=== PATIENT | female | born 1960 | race Caucasian/White ===

== ENCOUNTER → 2019-03-07 08:11 | Outpatient (CLI) | payer BC, SELFPAY ==
--- NOTE | 2019-03-07 08:12 | MM_ITS ---
MM Dig screening mamm BI w/CAD ORDERING PHYSICIAN : Natan Partida MD PATIENT AGE: 59 years GENDER: Female COMPARISON: December 2014, June 2016, July 2013 bilateral mammogram INDICATION:: Routine Screening Mammogram No hormones. No new complaints.. Family history. Maternal aunt with breast cancer TECHNIQUE: Standard CC and MLO images were obtained. R2 CAD reviewed. FINDINGS: Low-density breasts generalized fatty replacement minimal residual elements. No areas of concern. No dominant mass nor suspicious calcifications. CAD computer review highlights no areas of concern either. Stable appearance when compared to prior studies . IMPRESSION: Stable bilateral mammogram. No areas of concern. Low-density breast. Follow-up in one year recommended BI-RADS Category: 1 Negative RECOMMENDED FOLLOW-UP: 1YR 1 YEAR FOLLOW-UP (A letter has been sent to the patient regarding results of the study.)
== END ==
PROVIDERS: PCP Internal Medicine; Visit Provider Nurse Practitioner Obstetrics & Gynecology
DX: Z12.31 Encounter for screening mammogram for malignant neoplasm of breast (principal)
CPT/HCPCS: 77067

== ENCOUNTER → 2019-04-22 14:48 | Outpatient (POV) | payer BC, SELFPAY | PROVIDERS: PCP Internal Medicine; Visit Provider Nurse Practitioner Family | DX: Z00.00 Encounter for general adult medical examination without abnormal findings (principal) ==

== ENCOUNTER → 2020-10-27 10:37 | Outpatient (CLI) | payer BC, SELFPAY ==
[2020-10-27 11:00] LABS: Basophils # 0.1 K/mm3 (0-0.2); Basophils % 0.8 % (0.1-2.0); Eosinophils # 0.2 K/mm3 (0.0-0.4); Eosinophils % 2.3 % (0.1-12.0); Hematocrit 45.3 % (37.0-47.0); Hemoglobin 14.9 g/dL (12.2-16.2); Lymphocytes # 2.3 K/mm3 (0.7-4.5); Lymphocytes % 23.5 % (10-50); Mean Corpuscular HGB Conc 32.8 g/dL (31.8-35.4); Mean Corpuscular Hemoglobin 29.4 pg (27.0-31.2); Mean Corpuscular Volume 89.6 fl (81-99); Mean Platelet Volume 7.3 fl (7.4-10.4); Monocytes # 0.5 K/mm3 (0.1-1.0); Monocytes % 4.7 % (1.7-9.3); Neutrophils # 6.8 K/mm3 (1.8-7.8); Neutrophils % 68.7 % (37.0-80.0); Platelet Count 440 K/mm3 (142-424); Red Blood Count 5.06 M/mm3 (4.20-5.40); Red Cell Distribution Width 13.2 % (11.5-17.5); White Blood Count 9.8 K/mm3 (4.8-10.8)
[2020-10-27 11:22] LABS: Hemoglobin A1C 7.1 % (4.0-6.0)
[2020-10-27 11:54] LABS: Chloride 102 mmol/L (98-107)
[2020-10-27 11:55] LABS: Potassium 4.4 mmoL/L (3.5-5.1); Sodium 141 mmol/L (136-145)
[2020-10-27 11:57] LABS: Alanine Aminotransferase 29 U/L (12-78); Anion Gap 16.4 mEq/L (5-15); Aspartate Amino Transferase 28 U/L (14-36); Blood Urea Nitrogen 13 mg/dl (7-17); Carbon Dioxide 27 mmol/L (22.0-30.0); Estimated Glomerular Filt Rate 102 ml/min (>60); GFR (African American) 124 ML/MIN (>60)
[2020-10-27 11:58] LABS: Albumin Level 4.9 g/dl (3.5-5.0); Albumin/Globulin Ratio 1.6 (1.1-1.8); Alkaline Phosphatase 89 U/L (38-126); Bilirubin,Total 0.7 mg/dl (0.2-1.3); Chol/HDL Ratio 4.4 (1-3.5); Cholesterol 229 mg/dl (140-200); Globulin 3.1 g/dL (1.3-3.2); Glucose 114 mg/dl (74-100); HDL Cholesterol 52 mg/dl (40-60); Triglycerides 173 mg/dl (30-150); VLDL Cholesterol 35 mg/dL (0-40)
[2020-10-27 12:09] LABS: Direct LDL Cholesterol 127.11 mg/dL (100-129)
== END ==
PROVIDERS: Visit Provider Internal Medicine
DX: E11.9 Type 2 diabetes mellitus without complications (principal); E78.5 Hyperlipidemia, unspecified; M17.0 Bilateral primary osteoarthritis of knee; G43.009 Migraine without aura, not intractable, without status migrainosus
CPT/HCPCS: 36415; 80053; 80061; 82043; 83036; 85025

== ENCOUNTER → 2021-02-09 09:41 | Outpatient (CLI) | payer BC, SELFPAY ==
[2021-02-09 10:34] LABS: Chloride 100 mmol/L (98-107)
[2021-02-09 10:35] LABS: Potassium 4.6 mmoL/L (3.5-5.1); Sodium 142 mmol/L (136-145)
[2021-02-09 10:37] LABS: Blood Urea Nitrogen 12 mg/dl (7-17); Estimated Glomerular Filt Rate 102 ml/min (>60); GFR (African American) 123 ML/MIN (>60)
[2021-02-09 10:38] LABS: Alanine Aminotransferase 29 U/L (12-78); Albumin Level 4.9 g/dl (3.5-5.0); Albumin/Globulin Ratio 1.6 (1.1-1.8); Alkaline Phosphatase 86 U/L (38-126); Anion Gap 17.6 mEq/L (5-15); Aspartate Amino Transferase 29 U/L (14-36); Bilirubin,Total 0.6 mg/dl (0.2-1.3); Calcium 9.7 mg/dl (8.4-10.2); Carbon Dioxide 29 mmol/L (22.0-30.0); Chol/HDL Ratio 2.6 (1-3.5); Cholesterol 119 mg/dl (140-200); Glucose 104 mg/dl (74-100); HDL Cholesterol 46 mg/dl (40-60); Total Protein,Serum 7.9 g/dl (6.3-8.2); Triglycerides 124 mg/dl (30-150); VLDL Cholesterol 25 mg/dL (0-40)
[2021-02-09 10:50] LABS: Direct LDL Cholesterol 50.61 mg/dL (100-129)
[2021-02-09 12:44] LABS: Hemoglobin A1C 6.1 % (4.0-6.0)
== END ==
PROVIDERS: Visit Provider Internal Medicine
DX: E11.9 Type 2 diabetes mellitus without complications (principal); E78.5 Hyperlipidemia, unspecified; Z79.84 Long term (current) use of oral hypoglycemic drugs
CPT/HCPCS: 36415; 80053; 80061; 83036

== ENCOUNTER → 2021-04-28 08:20 | Outpatient (CLI) | payer BC, SELFPAY | PROVIDERS: PCP Internal Medicine; Visit Provider Nurse Practitioner | DX: Z20.822 Contact with and (suspected) exposure to COVID-19 (principal) | CPT/HCPCS: C9803; U0003; U0005 ==

== ENCOUNTER → 2021-08-10 13:22 | Outpatient (CLI) | payer BC, SELFPAY | PROVIDERS: Visit Provider Internal Medicine | DX: E11.9 Type 2 diabetes mellitus without complications (principal); Z79.84 Long term (current) use of oral hypoglycemic drugs ==

== ENCOUNTER → 2021-08-10 13:23 | Outpatient (CLI) | payer BC, SELFPAY ==
[2021-08-10 13:56] LABS: Basophils # 0.1 K/mm3 (0-0.2); Basophils % 1.2 % (0.1-2.0); Eosinophils # 0.3 K/mm3 (0.0-0.4); Eosinophils % 3.1 % (0.1-12.0); Hematocrit 42.8 % (37.0-47.0); Hemoglobin 14.2 g/dL (12.2-16.2); Lymphocytes # 2.5 K/mm3 (0.7-4.5); Lymphocytes % 24.6 % (10-50); Mean Corpuscular HGB Conc 33.1 g/dL (31.8-35.4); Mean Corpuscular Hemoglobin 30.1 pg (27.0-31.2); Mean Corpuscular Volume 90.9 fl (81-99); Mean Platelet Volume 8.8 fl (7.4-10.4); Monocytes # 0.8 K/mm3 (0.1-1.0); Monocytes % 8.2 % (1.7-9.3); Neutrophils # 6.4 K/mm3 (1.8-7.8); Platelet Count 566 K/mm3 (142-424); Red Blood Count 4.72 M/mm3 (4.20-5.40); Red Cell Distribution Width 13.1 % (11.5-17.5); White Blood Count 10.2 K/mm3 (4.8-10.8)
[2021-08-10 14:08] LABS: Chloride 97 mmol/L (98-107); Potassium 4.7 mmoL/L (3.5-5.1); Sodium 138 mmol/L (136-145)
[2021-08-10 14:10] LABS: Alanine Aminotransferase 32 U/L (12-78); Alkaline Phosphatase 82 U/L (38-126); Aspartate Amino Transferase 34 U/L (14-36); Bilirubin,Total 0.5 mg/dl (0.2-1.3); Blood Urea Nitrogen 13 mg/dl (7-17); Estimated Glomerular Filt Rate 102 ml/min (>60); GFR (African American) 123 ML/MIN (>60)
[2021-08-10 14:11] LABS: Albumin Level 4.6 g/dl (3.5-5.0); Albumin/Globulin Ratio 1.6 (1.1-1.8); Anion Gap 15.7 mEq/L (5-15); Calcium 9.5 mg/dl (8.4-10.2); Carbon Dioxide 30 mmol/L (22.0-30.0); Chol/HDL Ratio 4.3 (1-3.5); Cholesterol 207 mg/dl (140-200); Globulin 2.8 g/dL (1.3-3.2); Glucose 101 mg/dl (74-100); HDL Cholesterol 48 mg/dl (40-60); Total Protein,Serum 7.4 g/dl (6.3-8.2); Triglycerides 156 mg/dl (30-150); VLDL Cholesterol 31 mg/dL (0-40)
[2021-08-10 14:29] LABS: Hemoglobin A1C 6.1 % (4.0-6.0)
== END ==
PROVIDERS: Visit Provider Internal Medicine
DX: E11.9 Type 2 diabetes mellitus without complications (principal); E78.5 Hyperlipidemia, unspecified; K21.9 Gastro-esophageal reflux disease without esophagitis; Z79.84 Long term (current) use of oral hypoglycemic drugs
CPT/HCPCS: 80053; 80061; 83036; 85025

== ENCOUNTER → 2021-11-30 07:43 | Outpatient (CLI) | payer BC, SELFPAY ==
--- NOTE | 2021-11-30 07:43 | MM_ITS ---
PROCEDURE INFORMATION: Exam: MG Bilateral Screening 3D Mammography Exam date and time: 11/30/2021 7:56 AM Age: 61 years old Clinical indication: Screening. Her maternal aunt had breast cancer. TECHNIQUE: Imaging protocol: Bilateral Screening tomosynthesis and 2D mammography including computer-aided detection (CAD) when performed. COMPARISON: 1. MG MM DIG SCREENING MAMM BI W/CAD 03/07/2019 8:42 AM 2. MG DMSB DIG MAMM-SCREEN LUCAS 06/10/2016 9:03 AM 3. MG DMSB DIG MAMM-SCREEN LUCAS 12/09/2014 8:52 AM 4. MG DMSB DIG MAMM-SCREEN LUCAS 07/12/2013 8:37 AM FINDINGS: MAMMOGRAPHY: Breast composition: The breasts are almost entirely fatty. Mass: None. Architectural distortion: None. Calcifications: No suspicious calcifications. Asymmetric density: None. Skin thickening: None. Axillary adenopathy: None. IMPRESSION: No mammographic evidence of malignancy. Annual screening is recommended unless otherwise clinically indicated. ASSESSMENT: BI-RADS Category 1: Negative
== END ==
PROVIDERS: PCP Internal Medicine; Visit Provider Obstetrics & Gynecology
DX: Z12.31 Encounter for screening mammogram for malignant neoplasm of breast (principal)
CPT/HCPCS: 77063; 77067

== ENCOUNTER → 2022-02-08 09:48 | Outpatient (CLI) | payer BC, SELFPAY ==
[2022-02-08 10:59] LABS: Alanine Aminotransferase 36 U/L (12-78); Albumin Level 4.4 g/dl (3.5-5.0); Albumin/Globulin Ratio 1.5 (1.1-1.8); Alkaline Phosphatase 85 U/L (38-126); Anion Gap 13.2 mEq/L (5-15); Aspartate Amino Transferase 33 U/L (14-36); Bilirubin,Total 0.2 mg/dl (0.2-1.3); Blood Urea Nitrogen 12 mg/dl (7-17); Calcium 9.6 mg/dl (8.4-10.2); Carbon Dioxide 27 mmol/L (22.0-30.0); Chloride 102 mmol/L (98-107); Chol/HDL Ratio 4.8 (1-3.5); Cholesterol 224 mg/dl (140-200); Estimated Glomerular Filt Rate 102 ml/min (>60); GFR (African American) 123 ML/MIN (>60); Globulin 2.9 g/dL (1.3-3.2); Glucose 109 mg/dl (74-100); HDL Cholesterol 47 mg/dl (40-60); Potassium 4.2 mmoL/L (3.5-5.1); Sodium 138 mmol/L (136-145); Total Protein,Serum 7.3 g/dl (6.3-8.2); Triglycerides 238 mg/dl (30-150); VLDL Cholesterol 48 mg/dL (0-40)
[2022-02-08 11:00] LABS: Creatinine,Urine Random 81 mg/dL (Not Estab.); Hemoglobin A1C 6.3 % (4.0-6.0); Microalbumin < 6.000 mg/L (0-16.7)
[2022-02-08 11:09] LABS: Direct LDL Cholesterol 113.04 mg/dL (100-129)
== END ==
PROVIDERS: PCP Internal Medicine; Visit Provider Internal Medicine
DX: E11.9 Type 2 diabetes mellitus without complications (principal); E78.5 Hyperlipidemia, unspecified; M17.0 Bilateral primary osteoarthritis of knee; Z79.84 Long term (current) use of oral hypoglycemic drugs
CPT/HCPCS: 36415; 80053; 80061; 82043; 82570; 83036

== ENCOUNTER 2022-03-28 13:08 | Emergency (ER) | payer BC, SELFPAY ==
[2022-03-28 14:20] VITALS: BP 132/78; PULSE 70; RESP 20; TEMP 36.8; O2SAT 98; BMI 34.9
[2022-03-28 14:32] VITALS: BP 132/78; PULSE 70; RESP 20; TEMP 36.8; O2SAT 98
--- NOTE | 2022-03-28 14:34 | HMH.EDUTC ---
[facility] Disposition Clinical Impression: Exposure to COVID-19 virus Disposition: Home, Self-Care Condition on Discharge: Good Instructions: DI for COVID-19 (Suspected or Confirmed ), Preventing the Spread of Coronavirus Discharge Instructions Additional Instructions: Drink plenty of fluids. Take tylenol for pain or fever. Return if you begin to have difficulty breathing. Follow up with your regular doctor. GO TO THE ER FOR ANY WORSENING SYMPTOMS Quarantine until you know the results of your covid-19 test. Notify your school or workplace of your results and follow their instructions regarding return to work/school. Referrals: Zachary Hill MD [Primary Care Provider] - Time of Disposition: 14:50 Medical Decision Making - Medical Records Medical records reviewed: No: I reviewed the patient's medical records. - Jesús Inquiry Pt receiving controlled substance: No Vital Signs: 03/28/22 14:20 03/28/22 14:32 Temperature 98.2 F 98.2 F Temperature Source Oral Pulse Rate 70 Pulse Rate [Right Brachial] 70 Respiratory Rate 20 20 Blood Pressure 132/78 Blood Pressure [Left Arm] 132/78 Blood Pressure Mean [Left Arm] 96 Blood Pressure Source [Left Arm] Automatic Cuff Blood Pressure Position [Left Arm] Sitting 02 Sat by Pulse Oximetry 98 Oxygen Delivery Method Room Air [facility] HPI - General Stated complaint: covid test Time Seen by Provider: 03/28/22 14:34 Mode of Arrival: Ambulatory Source of Information: Patient Limitations: No Limitations Description of Symptoms (Recalled from Triage Doc. by RN): COVID TEST D/T EXPOSURE HEENT Symptoms (Recalled from RN notes): No Resp Symptoms (Recalled from RN notes): No Skin Symptoms (Recalled from RN notes): No MS Symptoms (Recalled from RN notes): No Functional Status (Recalled from RN notes): WNL - History of Present Illness Provider Complaint: She was exposed to covid-19 by members of her family having it. Her exposure was approx 4 days ago. She denies any symptoms so far. - Related Data Home Medications Medication Instructions Recorded Confirmed metformin 500 mg tablet 500 mg PO BID tab 12/03/20 11/16/21 acyclovir 400 mg tablet 400 mg PO tab 11/16/21 11/16/21 Previous Rx's Medication Instructions Recorded estradiol 0.5 g VAGINAL .COMPLEX #42.5 g 11/17/21 Allergies Allergy/AdvReac Type Severity Reaction Status Date / Time codeine [CODEINE] Allergy Intermediate I-HIVES Verified 11/16/21 10:20 Penicillins [PENICILLINS] Allergy Unknown Verified 11/16/21 10:20 - Worker's Comp Is this a Worker's Comp case?: No [facility] History - Hepatitis A Screen Attestation statement:: This patient has been screened for Hepatitis A risk factors. I have reviewed the patient's past medical history: Yes Medical History: Reports:: Diabetes Mellitus Type 2, Hyperlipidemia Denies:: Cancer, Diabetes Mellitus Type 1, Internal Pacemaker, Lung Disease, MRSA, Seizures Comment: obesity Other Surgeries: Yes: Cholecystectomy. No: Pacemaker Amputation: No Fractures: No Comment: Oral Surgery as a child - Social History Smoking Status: Never smoker Alcohol Intake: never Alcohol Intake Frequency:: other Substance Use Type: denies use Occupational Status: retired Housing: house Household Members: family Family Hx:: Diabetes, Cancer, Heart Attack, Hypertension, Hyperlipidemia ROS Obtained: Yes All systems reviewed & no additional complaints - Constitutional Constitutional: Reports system reviewed and no additional complaints, except as docu, Denies chills, Denies fever(s) - Eyes Eyes: Reports system reviewed and no additional complaints, except as docu, Denies eye discharge - ENT Ears, Nose, Mouth, and Throat: Reports system reviewed and no additional complaints, except as docu - Cardiovascular Cardiovascular: Reports system reviewed and no additional complaints, except as docu - Respiratory Respiratory: Reports system reviewed and n
== END 2022-03-28 14:43 | disposition home or self-care (01) ==
PROVIDERS: Emergency Provider Nurse Practitioner Family; PCP Internal Medicine
DX: Z20.822 Contact with and (suspected) exposure to COVID-19 (principal)
CPT/HCPCS: 99212; C9803; G0463; U0003; U0005

== ENCOUNTER → 2022-07-18 11:25 | Outpatient (CLI) | payer BC, SELFPAY | PROVIDERS: PCP Internal Medicine; Visit Provider Internal Medicine | DX: Z20.822 Contact with and (suspected) exposure to COVID-19 (principal); J09.X2 Influenza due to identified novel influenza A virus with other respiratory manifestations | CPT/HCPCS: 87275; 87276; C9803; U0003; U0005 ==

== ENCOUNTER → 2022-08-09 09:48 | Outpatient (CLI) | payer BC, SELFPAY ==
--- NOTE | 2022-08-09 09:58 | XR_ITS ---
FINAL REPORT CLINICAL HISTORY: Diagnosed with Flu A Jul 18, sore throat, productive cough COMPARISON: October 2016 FINDINGS: CHEST TWO-VIEW Mild scarring in the left lung base. There is no evidence of effusion or other pleural disease. The mediastinum as a normal appearance. The cardiac silhouette is unremarkable. IMPRESSION: No acute findings. Reviewed, Interpreted and Dictated by Familia Troy MD Transcribed by Devon Delatorre Authenticated and [facility]
== END ==
PROVIDERS: PCP Internal Medicine; Visit Provider Internal Medicine
DX: R07.89 Other chest pain (principal); M54.6 Pain in thoracic spine; R05.9 Cough, unspecified
CPT/HCPCS: 71046

== ENCOUNTER 2022-08-20 10:03 | Emergency (ER) | payer OTHER, BC, SELFPAY ==
[2022-08-20 10:19] VITALS: BP 143/75; PULSE 97; RESP 16; TEMP 36.6; O2SAT 98; BMI 34.0
[2022-08-20 10:31] VITALS: BP 126/80; PULSE 104; RESP 20; O2SAT 96
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
[2022-08-20 11:28] LABS: Chloride 99 mmol/L (98-107); Potassium 4.1 mmoL/L (3.5-5.1); Sodium 138 mmol/L (136-145)
[2022-08-20 11:30] LABS: Basophils # 0.2 K/mm3 (0-0.2); Basophils % 1.3 % (0.1-2.0); Eosinophils # 0.2 K/mm3 (0.0-0.4); Eosinophils % 1.8 % (0.1-12.0); Hematocrit 41.4 % (37.0-47.0); Hemoglobin 14.3 g/dL (12.2-16.2); Lymphocytes # 2.5 K/mm3 (0.7-4.5); Lymphocytes % 17.7 % (10-50); Mean Corpuscular HGB Conc 34.4 g/dL (31.8-35.4); Mean Corpuscular Hemoglobin 29.9 pg (27.0-31.2); Mean Corpuscular Volume 86.9 fl (81-99); Mean Platelet Volume 7.9 fl (7.4-10.4); Monocytes # 0.5 K/mm3 (0.1-1.0); Monocytes % 3.7 % (1.7-9.3); Neutrophils # 10.5 K/mm3 (1.8-7.8); Neutrophils % 75.5 % (37.0-80.0); Platelet Count 465 K/mm3 (142-424); Red Blood Count 4.76 M/mm3 (4.20-5.40); Red Cell Distribution Width 13.5 % (11.5-17.5); White Blood Count 13.9 K/mm3 (4.8-10.8)
[2022-08-20 11:31] LABS: Alanine Aminotransferase 43 U/L (12-78); Albumin Level 4.7 g/dl (3.5-5.0); Albumin/Globulin Ratio 1.3 (1.1-1.8); Alkaline Phosphatase 112 U/L (38-126); Anion Gap 19.1 mEq/L (5-15); Aspartate Amino Transferase 38 U/L (14-36); Bilirubin,Total 0.5 mg/dl (0.2-1.3); Blood Urea Nitrogen 11 mg/dl (7-17); Carbon Dioxide 24 mmol/L (22.0-30.0); Creatinine Clearance Estimated 76 mL/min (50-200); Estimated Glomerular Filt Rate 102 ml/min (>60); GFR (African American) 123 ML/MIN (>60); Globulin 3.5 g/dL (1.3-3.2); Total Protein,Serum 8.2 g/dl (6.3-8.2)
[2022-08-20 11:32] LABS: Calcium 9.6 mg/dl (8.4-10.2); Glucose 210 mg/dl (74-100)
[2022-08-20 11:35] LABS: Lactic Acid 4.1 mmol/L (0.7-2.1)
[2022-08-20 12:33] VITALS: BP 151/82; PULSE 83; RESP 20; O2SAT 98
--- NOTE | 2022-08-20 14:04 | PC.NURSE ---
rounded on pt at this time, at bedside. both given drinks, no others needs voiced.
[2022-08-20 14:42] LABS: Reflex Lactic Add Lactic Reflex
[2022-08-20 15:01] VITALS: BP 143/70; PULSE 81; RESP 20; O2SAT 98
[2022-08-20 15:19] LABS: Lactic Acid Follow Up (RFLX 1) 4.6 mmol/L (0.7-2.1)
[2022-08-20 16:20] LABS: Reflex Lactic (2 hrs) Add Lactic Reflex
[2022-08-20 17:23] VITALS: BP 128/80; PULSE 84; RESP 12; TEMP 36.9; O2SAT 96
== END 2022-08-20 17:30 | disposition home or self-care (01) ==
PROVIDERS: Emergency Provider Emergency Medicine; PCP Internal Medicine
DX: S44.92XA Injury of unspecified nerve at shoulder and upper arm level, left arm, initial encounter (principal); D25.9 Leiomyoma of uterus, unspecified; V47.5XXA Car driver injured in collision with fixed or stationary object in traffic accident, initial encounter; E11.9 Type 2 diabetes mellitus without complications
CPT/HCPCS: 36415; 70450; 70496; 70498; 71275; 72125; 72128; 72131; 74174; 80053; 83605; 85025; 86850; 96360; 96361; 99285; Q9967

== ENCOUNTER → 2022-09-15 06:55 | Outpatient (CLI) | payer BC, SELFPAY ==
[2022-09-15 09:03] LABS: Alanine Aminotransferase 47 U/L (12-78); Albumin Level 4.4 g/dl (3.5-5.0); Albumin/Globulin Ratio 1.6 (1.1-1.8); Alkaline Phosphatase 141 U/L (38-126); Anion Gap 10.4 mEq/L (5-15); Aspartate Amino Transferase 34 U/L (14-36); Bilirubin,Total 0.3 mg/dl (0.2-1.3); Blood Urea Nitrogen 9 mg/dl (7-17); Calcium 9.1 mg/dl (8.4-10.2); Carbon Dioxide 30 mmol/L (22.0-30.0); Chloride 101 mmol/L (98-107); Chol/HDL Ratio 4.6 (1-3.5); Cholesterol 151 mg/dl (140-200); Estimated Glomerular Filt Rate 102 ml/min (>60); GFR (African American) 123 ML/MIN (>60); Globulin 2.8 g/dL (1.3-3.2); Glucose 151 mg/dl (74-100); HDL Cholesterol 33 mg/dl (40-60); Potassium 4.4 mmoL/L (3.5-5.1); Sodium 137 mmol/L (136-145); Total Protein,Serum 7.2 g/dl (6.3-8.2); Triglycerides 215 mg/dl (30-150); VLDL Cholesterol 43 mg/dL (0-40)
[2022-09-15 09:14] LABS: Direct LDL Cholesterol 88.24 mg/dL (100-129)
[2022-09-15 09:18] LABS: Creatinine,Urine Random 14 mg/dL (Not Estab.); Microalbumin < 6.000 mg/L (0-16.7)
[2022-09-15 09:38] LABS: Hemoglobin A1C 7.5 % (4.0-6.0)
== END ==
PROVIDERS: PCP Internal Medicine; Visit Provider Internal Medicine
DX: E11.9 Type 2 diabetes mellitus without complications (principal); E78.5 Hyperlipidemia, unspecified; K21.9 Gastro-esophageal reflux disease without esophagitis; N17.0 Acute kidney failure with tubular necrosis; M15.1 Heberden's nodes (with arthropathy); Z79.84 Long term (current) use of oral hypoglycemic drugs
CPT/HCPCS: 36415; 80053; 80061; 82043; 82570; 83036

== ENCOUNTER 2023-02-10 18:25 | Emergency (ER) | payer BC, SELFPAY ==
[2023-02-10 18:38] VITALS: BP 150/60; PULSE 82; RESP 20; TEMP 37.1; O2SAT 97; BMI 33.2
[2023-02-10 18:42] LABS: POC Glucose,Bedside 122 (70-110)
--- NOTE | 2023-02-10 18:47 | PC.NURSE ---
speaking to poison control
--- NOTE | 2023-02-10 18:48 | PC.NURSE ---
poison control states an obs time of 3h with hourly fsbs. hypoglycemia is the only concern. initial fsbs 121.
--- NOTE | 2023-02-10 19:13 | HMH.EDGENADL ---
Discharge Plan Disposition Patient Disposition: Home, Self-Care Prescriptions Prescriptions: No Action metformin 500 mg tablet 500 mg PO BID Patient Comments: TAKE TWO TABLETS BY MOUTH TWICE DAILY WITH MEALS acyclovir 400 mg tablet 400 mg PO urea 45 % gel 1 applic topical DAILY MDD one brush on application Qty: 28 0RF estradiol 0.01 % (0.1 mg/gram) cream 0.5 g VAGINAL .COMPLEX Qty: 42.5 2RF Rx Instructions: 0.5 grams vaginal insert one-half gram vaginally twice weekly at bedtime; Referrals Follow up/Referrals: Zachary Hill MD [Primary Care Provider] - See instructions Clinical Impressions Clinical Impression: Allergy Discharge ED Provider: Iván Arzate General Adult HPI General Chief complaint: Allergic Reaction Stated complaint: Needle stick with vetsulin possible reaction Time Seen by Provider: 02/10/23 19:10 Mode of Arrival: Ambulatory Source of Information: Patient Limitations: No Limitations Description of Symptoms (Recalled from ER Triage Doc. by RN): pt to ed c/o redness/swelling to the tip of her left ring finger. pt states she had a needle stick of vetsolin to that finger after administering medication to her cat. 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 She apparently stuck herself with a needle that she had just injected the medication into her cat. This medicine apparently is metformin for animals she had it stuck herself with this needle before but this 1 caused a little swelling of her finger and out of precaution they came to the emergency department. Patient is allergic to codeine and penicillins and she herself has diabetes. She has had no cough shortness of breath Related Data Home Medications Medication Instructions Recorded Confirmed metformin 500 mg tablet 500 mg PO BID 12/03/20 12/28/22 acyclovir 400 mg tablet 400 mg PO 11/16/21 12/28/22 Previous Rx's Medication Instructions Recorded estradiol 0.01% (0.1 mg/gram) 0.5 g vaginal .COMPLEX #42.5 grams 11/17/21 vaginal cream urea 45 % topical gel 1 applic topical DAILY nail 06/15/22 dystrophy #28 mL Allergies Allergy/AdvReac Type Severity Reaction Status Date / Time codeine [CODEINE] Allergy Intermediate I-HIVES Verified 12/28/22 08:22 Penicillins [PENICILLINS] Allergy Unknown Verified 12/28/22 08:22 [facility] Disclaimer: The information contained in this section may have been updated after the patient was seen, as this information can be updated by other users. Social History Smoking Status: Never smoker second hand exposure: No alcohol intake: never substance use type: denies use current occupational status: retired Travel in the last 8 weeks: None household members: family housing: house current occupational exposures/hazards: No caffeine: Yes ROS Obtained: Yes Systems reviewed as appropriate & no additional complaints except as documented Physical Exam General General appearance: alert and in no apparent distress Head Head exam: atraumatic and normocephalic Eye Eye exam: Present normal appearance and PERRL ENT ENT exam: Present normal exam Neck Neck exam: Present normal inspection Chest Chest inspection: Present normal inspection Respiratory Respiratory exam: Present normal lung sounds bilaterally Cardiovascular Cardiovascular exam: Present regular rate and normal rhythm Abdominal Exam Abdominal exam: Present soft; Absent tenderness Extremities Exam Extremities exam: Present edema (Small amount of edema at the fingertip left hand at the site of the needlestick.) Neurological Exam Neurological exam: Present alert, oriented X3 and CN II-XII intact Medical Decision Making Medical Records MR Comment: 63-year-old white female in no distress presents with fingerstick veterinary medicin
[2023-02-10 19:35] VITALS: BP 147/81; PULSE 64; RESP 18; TEMP 37.1; O2SAT 97
--- NOTE | 2023-02-10 19:36 | PC.WOUNDNOTE ---
pt states that if ther e was no treatment that she would like to go home and see would bjorn blood sugar @ home
== END 2023-02-10 19:44 | disposition home or self-care (01) ==
PROVIDERS: Emergency Provider Emergency Medicine; PCP Internal Medicine
DX: T38.3X1A Poisoning by insulin and oral hypoglycemic [antidiabetic] drugs, accidental (unintentional), initial encounter (principal); R22.32 Localized swelling, mass and lump, left upper limb; W46.0XXA Contact with hypodermic needle, initial encounter; E11.9 Type 2 diabetes mellitus without complications
CPT/HCPCS: 82962; 99283

== ENCOUNTER → 2023-03-01 07:49 | Outpatient (CLI) | payer BC, SELFPAY ==
[2023-03-01 08:09] LABS: Basophils # 0.1 K/mm3 (0-0.2); Basophils % 1.1 % (0.1-2.0); Eosinophils # 0.3 K/mm3 (0.0-0.4); Eosinophils % 3.4 % (0.1-12.0); Hematocrit 42.4 % (37.0-47.0); Hemoglobin 13.6 g/dL (12.2-16.2); Lymphocytes # 2.2 K/mm3 (0.7-4.5); Lymphocytes % 26.8 % (10-50); Mean Corpuscular Hemoglobin 28.8 pg (27.0-31.2); Mean Corpuscular Volume 89.8 fl (81-99); Mean Platelet Volume 7.8 fl (7.4-10.4); Monocytes # 0.4 K/mm3 (0.1-1.0); Monocytes % 4.5 % (1.7-9.3); Neutrophils # 5.4 K/mm3 (1.8-7.8); Neutrophils % 64.2 % (37.0-80.0); Platelet Count 386 K/mm3 (142-424); Red Blood Count 4.72 M/mm3 (4.20-5.40); White Blood Count 8.4 K/mm3 (4.8-10.8)
[2023-03-01 08:28] LABS: Alanine Aminotransferase 32 U/L (12-78); Albumin Level 4.3 g/dl (3.5-5.0); Albumin/Globulin Ratio 1.5 (1.1-1.8); Alkaline Phosphatase 87 U/L (38-126); Anion Gap 11.3 mEq/L (5-15); Aspartate Amino Transferase 28 U/L (14-36); Bilirubin,Total 0.3 mg/dl (0.2-1.3); Blood Urea Nitrogen 13 mg/dl (7-17); Calcium 9.1 mg/dl (8.4-10.2); Carbon Dioxide 31 mmol/L (22.0-30.0); Chloride 102 mmol/L (98-107); Chol/HDL Ratio 3.9 (1-3.5); Cholesterol 179 mg/dl (140-200); Estimated Glomerular Filt Rate 101 ml/min (>60); GFR (African American) 123 ML/MIN (>60); Globulin 2.9 g/dL (1.3-3.2); Glucose 146 mg/dl (74-100); HDL Cholesterol 46 mg/dl (40-60); Potassium 4.3 mmoL/L (3.5-5.1); Sodium 140 mmol/L (136-145); Total Protein,Serum 7.2 g/dl (6.3-8.2); Triglycerides 245 mg/dl (30-150); VLDL Cholesterol 49 mg/dL (0-40)
[2023-03-01 08:39] LABS: Direct LDL Cholesterol 83.54 mg/dL (100-129)
[2023-03-01 09:00] LABS: Hemoglobin A1C 7.2 % (4.0-6.0)
[2023-03-01 09:01] LABS: Creatinine,Urine Random 26 mg/dL (Not Estab.); Microalbumin < 6.000 mg/L (0-16.7)
== END ==
PROVIDERS: PCP Internal Medicine; Visit Provider Internal Medicine
DX: E11.9 Type 2 diabetes mellitus without complications (principal); E78.5 Hyperlipidemia, unspecified; M17.0 Bilateral primary osteoarthritis of knee; K21.9 Gastro-esophageal reflux disease without esophagitis; Z79.84 Long term (current) use of oral hypoglycemic drugs
CPT/HCPCS: 36415; 80053; 80061; 82043; 82570; 83036; 85025

== ENCOUNTER 2023-08-05 13:44 | Emergency (ER) | payer BC, SELFPAY ==
[2023-08-05] VITALS (11 sets, daily range): BP systolic 135–159; BP diastolic 58–93; PULSE 114–123; RESP 16–20; TEMP 36.7–36.9; O2SAT 93–95; BMI 34.0
[2023-08-05 14:10] LABS: Basophils # 0.1 K/mm3 (0-0.2); Basophils % 0.6 % (0.1-2.0); Eosinophils # 0.3 K/mm3 (0.0-0.4); Eosinophils % 2.6 % (0.1-12.0); Hemoglobin 15.7 g/dL (12.2-16.2); Lymphocytes % 7.7 % (10-50); Mean Corpuscular HGB Conc 34.2 g/dL (31.8-35.4); Mean Corpuscular Hemoglobin 30.1 pg (27.0-31.2); Mean Platelet Volume 7.8 fl (7.4-10.4); Monocytes # 0.4 K/mm3 (0.1-1.0); Monocytes % 3.1 % (1.7-9.3); Neutrophils # 10.8 K/mm3 (1.8-7.8); Platelet Count 406 K/mm3 (142-424); Red Blood Count 5.23 M/mm3 (4.20-5.40); Red Cell Distribution Width 13.1 % (11.5-17.5); White Blood Count 12.6 K/mm3 (4.8-10.8)
[2023-08-05 14:11] LABS: Chloride 99 mmol/L (98-107); MANUAL DIFFERENTIAL MANUAL DIFFERENTIAL (MANUAL DIFF); Potassium 4.3 mmoL/L (3.5-5.1); Sodium 133 mmol/L (136-145)
[2023-08-05 14:13] LABS: Alanine Aminotransferase 63 U/L (12-78); Aspartate Amino Transferase 61 U/L (14-36); Blood Urea Nitrogen 22 mg/dl (7-17); Creatinine Clearance Estimated 75 mL/min (50-200); Estimated Glomerular Filt Rate 101 ml/min (>60); GFR (African American) 123 ML/MIN (>60)
[2023-08-05 14:14] LABS: Albumin Level 4.7 g/dl (3.5-5.0); Albumin/Globulin Ratio 1.5 (1.1-1.8); Alkaline Phosphatase 100 U/L (38-126); Anion Gap 18.3 mEq/L (5-15); Bilirubin,Total 0.9 mg/dl (0.2-1.3); Calcium 8.8 mg/dl (8.4-10.2); Carbon Dioxide 20 mmol/L (22.0-30.0); Globulin 3.2 g/dL (1.3-3.2); Glucose 194 mg/dl (74-100); Total Protein,Serum 7.9 g/dl (6.3-8.2)
[2023-08-05 14:41] LABS: Eosinophils % 2 % (0-3); Lymphocytes % 6 % (10-50); Monocytes % 3 % (2-9); Neutrophils % 89 % (42-76); Platelet Estimate Slight Increase; RBC Morphology Normal; Total Cells Counted 100
--- NOTE | 2023-08-05 14:52 | PC.NURSE ---
Rounded on pt. No needs voiced at this time. Visitor remains at BS and call light within reach.
--- NOTE | 2023-08-05 15:18 | PC.NURSE ---
Dr. Carr at BS for pt eval
--- NOTE | 2023-08-05 15:23 | HMH.EDGENADL ---
Discharge Plan Disposition Chief Complaint: Nausea/Vomiting/Diarrhea Prescriptions Prescriptions: New ondansetron 4 mg tablet,disintegrating 4 mg PO Q6H PRN (Reason: nausea and vomiting) 5 Days Qty: 20 0RF No Action metformin 500 mg tablet 500 mg PO BID Patient Comments: TAKE TWO TABLETS BY MOUTH TWICE DAILY WITH MEALS acyclovir 400 mg tablet 400 mg PO urea 45 % gel 1 applic topical DAILY MDD one brush on application Qty: 28 0RF estradiol 0.01 % (0.1 mg/gram) cream 0.5 g VAGINAL .COMPLEX Qty: 42.5 2RF Rx Instructions: 0.5 grams vaginal insert one-half gram vaginally twice weekly at bedtime; Referrals Follow up/Referrals: Zachary Hill MD [Primary Care Provider] - See instructions Agus Moreira MD [Staff Physician] - See instructions (for inappropriate tachycardia ) Activity Restrictions/Add. Instructions Additional Instructions/Restrictions: Your evaluated today for nausea vomiting and diarrhea but had persistent tachycardia. 2-1/2 L were administered and your tachycardia persisted out of proportion to your dehydration. You are very well-appearing on discharge no evidence of a pulmonary embolism or other life-threatening cause of your tachycardia but I recommend you follow-up with her grip regarding her inappropriate tachycardia and return with any chest pain shortness of breath significant abdominal pain inability tolerate fluids or any other concerns. Clinical Impressions Clinical Impression: Nausea vomiting and diarrhea, Dehydration, Anxiety, Inappropriate sinus tachycardia Instructions Patient Instructions: DI for Diarrhea and Traveler's Diarrhea -- Adult, DI for Diarrhea and Traveler's Diarrhea -- Child, DI for Nausea -- Adult, DI for Nausea -- Child Discharge ED Provider: Juanjose Gutierrez General Adult HPI General Chief complaint: Nausea/Vomiting/Diarrhea Stated complaint: vomiting w/ blood Time Seen by Provider: 08/05/23 15:07 Mode of Arrival: Ambulatory Source of Information: Patient Limitations: No Limitations Description of Symptoms (Recalled from ER Triage Doc. by RN): pt ate sandwich last night and began having abd cramping and pain. pt had also been to longterm visiting family where the stomach bug was going around. this morning she began vomitting and not being able to keep any fluids down. after lunch noticed some red tinged vomit and became concern. pt is laughing and joking upon triage History of Present Illness HPI narrative: Is a 63-year-old female presenting today with nausea vomiting and loose stools. States that her mother lives in a longterm and has had a GI bug and she feels that this may be a presenting symptom associate with that. She was eating a pulmonology sandwich and immediately after eating it felt as if there was a brick on her stomach and that it was not digesting she felt uncomfortable throughout the evening and started vomiting has had 4-5 nausea and vomiting episodes. The last vomiting episode there is a slight bit of blood-tinged vomit but no kerri hematemesis. No melena. No significant abdominal pain there is some crampy abdominal discomfort in between bowel movement episodes and vomiting episodes but nothing constant or persistent. She currently denies any significant abdominal discomfort. Related Data Home Medications Medication Instructions Recorded Confirmed metformin 500 mg tablet 500 mg PO BID 12/03/20 12/28/22 acyclovir 400 mg tablet 400 mg PO 11/16/21 12/28/22 Previous Rx's Medication Instructions Recorded estradiol 0.01% (0.1 mg/gram) 0.5 g vaginal .COMPLEX #42.5 grams 11/17/21 vaginal cream urea 45 % topical gel 1 applic topical DAILY nail 06/15/22 dystrophy #28 mL ondansetron 4 mg disintegrating 4 mg PO Q6H PRN nausea and 08/05/23 tablet vomiting 5 days #20 tabs Allergies Allergy/AdvReac Type Severity Reaction Status Date / Time codeine [CODEINE] Allergy Intermediate I-HIVES Verified 12/28/22 08:22 Penicillins [PENICILLINS] Allergy Unknown Verified 12/28/22 08:22 [facility] Disclaimer: The information contained in this section may have been updated after the patient was seen, as this information can be updated by other users. Social History Smoking Status: Never smoker second hand exposure: No alcohol intake: never substance use type: denies use current occupational status: retired Travel in the last 8 weeks: None household members: family housing: house current occupational exposures/hazards: No caffeine: Yes ROS Obtained: Yes All systems reviewed & no additional complaints except as documented Physical Exam General General appearance: alert Respiratory Respiratory exam: Present normal lung sounds bilaterally Cardiovascular Cardiovascular exam: Present tachycardia and other (Delayed capillary refill) Abdominal Exam Abdominal exam: Present soft; Absent distention or tenderness Neurological Exam Neurological exam: Present alert Medical Decision Making Jesús Inquiry Pt receiving controlled substance: No Vital Signs: 08/05/23 13:46 08/05/23 14:30 08/05/23 15:00 Temperature 98.5 F Temperature Source Oral Pulse Rate 121 H 115 H Pulse Rate [Right Radial] 120 H Respiratory Rate 20 Blood Pressure 144/83 H 149/92 H Blood Pressure [Right Arm] 156/87 H Blood Pressure Mean Blood Pressure Mean [Right Arm] 110 02 Sat by Pulse Oximetry 95 93 L 94 L Oxygen Delivery Method Room Air Room Air Room Air 08/05/23 15:30 08/05/23 16:00 08/05/23 16:30 Temperature Temperature Source Pulse Rate 114 H 119 H 121 H Pulse Rate [Right Radial] Respiratory Rate Blood Pressure 156/93 H 157/93 H 159/90 H Blood Pressure [Right Arm] Blood Pressure Mean Blood Pressure Mean [Right Arm] 02 Sat by Pulse Oximetry 95 94 L 94 L Oxygen Delivery Method Room Air Room Air Room Air 08/05/23 17:00 08/05/23 18:00 08/05/23 18:30 Temperature Temperature Source Pulse Rate 116 H 119 H 119 H Pulse Rate [Right Radial] Respiratory Rate Blood Pressure 153/86 H 145/76 H 152/78 H Blood Pressure [Right Arm] Blood Pressure Mean Blood Pressure Mean [Right Arm] 02 Sat by Pulse Oximetry 94 L 94 L 95 Oxygen Delivery Method Room Air Room Air Room Air 08/05/23 19:00 Temperature Temperature Source Pulse Rate Pulse Rate [Right Radial] Respiratory Rate Blood Pressure 138/58 L Blood Pressure [Right Arm] Blood Pressure Mean 87 Blood Pressure Mean [Right Arm] 02 Sat by Pulse Oximetry Oxygen Delivery Method Lab Data Lab results reviewed: Yes I reviewed the patient's lab results. Lab Results 08/05/23 13:50: Troponin I 0.02, Lipase 42 08/05/23 13:56: WBC 12.6 H, RBC 5.23, Hgb 15.7, Hct 46.0, MCV 88.0, MCH 30.1, MCHC 34.2, RDW 13.1, Plt Count 406, MPV 7.8, Neut % (Auto) 86.0 H, Lymph % (Auto) 7.7 L, [place] % (Auto) 3.1, Eos % (Auto) 2.6, Baso % (Auto) 0.6, Neut # (Auto) 10.8 H, Lymph # (Auto) 1.0, [place] # (Auto) 0.4, Eos # (Auto) 0.3, Baso # (Auto) 0.1, Total Counted 100, Neutrophils % (Manual) 89 H, Lymphocytes % (Manual) 6 L, Monocytes % (Manual) 3, Eosinophils % (Manual) 2, Platelet Estimate Slight increase, RBC Morphology Normal, Sodium 133 L, Potassium 4.3, Chloride 99, Carbon Dioxide 20 L, Anion Gap 18.3 H, BUN 22 H, Creatinine 0.60, Estimated Creat Clear 75, Estimated GFR 101, Est GFR ( Amer) 123, Glucose 194 H, Calcium 8.8, Total Bilirubin 0.9, AST 61 H, ALT 63, Alkaline Phosphatase 100, Total Protein 7.9, Albumin 4.7, Globulin 3.2, Albumin/Globulin Ratio 1.5 08/05/23 13:56 08/05/23 13:56 Orders (Tests/Meds): ED MEDICATIONS Generic Name Dose Route Start Last Admin Trade Name Freq PRN Reason Stop Dose Admin Sodium Chloride 10 ml 08/05/23 14:01 Sodium Chloride 0.9% 10ml Flush Syringe IV 09/04/23 14:00 NEEDED PRN Maintain IV Site Sodium Chloride 10 ml 08/05/23 17:17 Sodium Chloride 0.9% 10ml Vial IV 09/04/23 17:16 NEEDED PRN to Dilute Lorazepam inj Sodium Chloride 10 ml 08/05/23 17:42 08/05/23 17:43 Sodium Chloride 0.9% 10ml Syr (Rad Only) IV 09/04/23 17:41 10 ml NEEDED PRN Administration Maintain IV Site Discontinued Medications Generic Name Dose Route Start Last Admin Trade Name Freq PRN Reason Stop Dose Admin Lactated Ringer's 1,000 mls @ 999 mls/hr 08/05/23 15:30 08/05/23 17:53 Lactated Ringer's 1000 Ml Bag IV 08/05/23 17:30 Not Given .Q1H1M DAVID Lactated Ringer's 500 mls @ 999 mls/hr 08/05/23 17:30 08/05/23 18:00 Lactated Ringer's 1000 Ml Bag IV 08/05/23 18:00 999 mls/hr .Q31M DAVID Administration Iopamidol 75 ml 08/05/23 17:42 08/05/23 17:43 Iopamidol-370 (76%);100ml Bottle IV 08/05/23 17:43 75 ml ONCE ONE Administration Ketorolac Tromethamine 15 mg 08/05/23 17:20 08/05/23 17:25 Ketorolac 30mg/Ml Vial IV 08/05/23 17:21 15 mg ONCE ONE Administration Lorazepam 0.5 mg 08/05/23 17:17 08/05/23 17:25 Lorazepam 2mg/Ml Vial IV 08/05/23 17:18 0.5 mg ONCE ONE Administration Sodium Chloride 50 ml 08/05/23 17:42 08/05/23 17:43 0.9 % Sodium Chloride 50 Ml Vial IV 08/05/23 17:43 50 ml ONCE ONE Administration ORDERS Category Date Time Status CT angio chest PE protocol Stat Cat Scan 08/05/23 17:18 Completed Complete Blood Count Auto Diff Stat Lab 08/05/23 13:56 Completed Comprehensive Metabolic Panel Stat Lab 08/05/23 13:56 Completed Lipase Stat Lab 08/05/23 13:50 Completed Trop I [Troponin I] Stat Lab 08/05/23 13:50 Completed Troponin I Q3H Lab 08/05/23 20:30 Ordered Troponin I Q3H Lab 08/05/23 23:30 Ordered Medical Decision Narrative: Appearing 63-year-old female who is tachycardic with delayed capillary refill nausea vomiting loose stools this is most likely a viral syndrome. Her abdominal exam is benign this is not consistent with surgical pathology at the moment such as small bowel obstruction etc. Other things on the differential include metabolic emergency such as DKA etc. in the setting of her diabetes. Also could be food poisoning however no one else around her is having similar symptoms. I favor viral etiology at this point. Upon my reassessment patient had 500 cc of fluids that are in still tachycardic to 120 we will add a second liter of fluids and reassess. Reassessment 5:19 PM after 2 L of IV fluids patient's GI symptoms have improved abdominal exam however patient is persistently tachycardic with a heart rate of 120. She is very anxious states she is having a very stressful life right now take care of cats at home and her mother who is 97 years old. She has very mild abdominal pain. Serial abdominal exams are benign. I told her we have multiple options at this point including letting her go home with this persistent tachycardia but it is possible we could be missing a pulmonary embolism. She would like to stay for further evaluation which is reasonable. 500 cc more of LR has been added I will also give her some Ativan to treat some of her anxiety and a small dose of Toradol to treat the little bit of pain that she has in her abdomen we will add a troponin on. In ED observation order has been placed at 5:25 PM at this point with some diagnostic uncertainty and I will reassess her after this workup is complete and the therapeutic intervention has been completed as well. Reassessment 7:[address] scan performed which I personally interpreted as well as looked at radiology read which showed no acute abnormality specifically no pulmonary embolism. Troponin was undetectably low patient has no chest pain shortness of breath any of the symptoms at this point. Abdominal exam is again benign she is tolerating p.o. however she is still persistently tachycardic. She is very well-appearing anxiety is significantly improved with a low-dose of Ativan. At this point her symptoms are consistent with inappropriate sinus tachycardia and I am comfortable with her following up closely with Dr. Moreira our grip to further evaluate this. She is agreeable and she will return with any worsening symptoms heart rate was between 115 and 120 upon being discharged. She had a total of 2-1/2 L of IV fluid administration and was very well and nontoxic-appearing on discharge. Critical Care Critical Care Time Critical Care Time: No
[2023-08-05] MEDS: LACTATED RINGERS 1000ML 1,000 ML 999 ML IV ×2 (15:27)
[2023-08-05 15:35] LABS: Lipase 42 U/L (23-300)
--- NOTE | 2023-08-05 17:18 | CT_ITS ---
PROCEDURE INFORMATION: Exam: CTA Chest With Contrast Exam date and time: 08/05/2023 5:38 PM Age: 63 years old Clinical indication: Pain; Chest pressure; Additional info: Persistent tachycardia TECHNIQUE: Imaging protocol: Computed tomographic angiography of the chest with contrast. Exam focused on the arteries. 3D rendering (Not supervised by radiologist): MIP and/or 3D reconstructed images were created by the technologist. Radiation optimization: All CT scans at this facility use at least one of these dose optimization techniques: automated exposure control; mA and/or kV adjustment per patient size (includes targeted exams where dose is matched to clinical indication); or iterative reconstruction. Contrast material: ISO 370; Contrast volume: 70 ml; Contrast route: INTRAVENOUS (IV); REPORTING DATA: Count of CT and Cardiac NM exams in prior 12 months: This patient has received 8 known CTs and 0 known cardiac nuclear medicine studies in the 12 months prior to the current study. COMPARISON: 1. CT ANGIO CHEST 08/20/2022 12:18 PM 2. CR XR CHEST 2V 08/09/2022 10:04 AM 3. CR CXR CHEST(2 VIEWS-NOT PORTABLE) 10/27/2016 11:40 PM FINDINGS: Pulmonary arteries: There is fair opacification of the pulmonary arterial tree. No central pulmonary arterial filling defect is seen. Aorta: There is atherosclerotic disease of the visualized aorta and its major branch vessels. Other arteries: Subsegmental vessels are not well evaluated due to contrast timing. Lungs: Scattered areas of bronchial wall thickening which are likely chronic inflammatory. A few areas of subpleural reticulation are noted, nonspecific. Pleural spaces: Unremarkable. No pneumothorax. No pleural effusion. Heart: Unremarkable. No cardiomegaly. No pericardial effusion. Coronary arteries: There is mild coronary atherosclerotic disease/calcification although evaluation is limited secondary to the non gated nature of the study. Lymph nodes: There are calcified mediastinal lymph nodes likely reflecting prior granulomatous disease. Gallbladder and bile ducts: The patient is status post cholecystectomy. Bones/joints: There is diffuse degenerative disease of the visualized osseous structures. Soft tissues: Unremarkable. Other findings: Motion artifact mildly limits evaluation. IMPRESSION: 1. No central pulmonary arterial filling defect is seen. Subsegmental vessels are not well evaluated due to contrast timing. 2. No dense parenchymal consolidation, pleural effusion, or pneumothorax.
[2023-08-05] MEDS: LORazepam 2MG/ML VIAL 0.5 MG IV (17:25)
[2023-08-05] MEDS: KETOROLAC 30MG/ML VIAL 15 MG IV (17:25)
[2023-08-05] MEDS: SODIUM CHLORIDE 0.9% 10ML SYR (RAD ONLY) 10 ML IV (17:43)
[2023-08-05] MEDS: 0.9 % SODIUM CHLORIDE 50 ML VIAL IV (17:43)
[2023-08-05] MEDS: IOPAMIDOL-370 (76%);100ML BOTTLE 75 ML IV (17:43)
[2023-08-05 17:44] LABS: Troponin I 0.02 ng/ml (0.00-0.034)
[2023-08-05] MEDS: LACTATED RINGERS 1000ML 500 ML 999 ML IV (18:00)
== END 2023-08-05 19:34 | disposition home or self-care (01) ==
LOC: ER 13:52
PROVIDERS: Student in an Organized Health Care Education/Training Program; Emergency Provider Emergency Medicine; PCP Internal Medicine
DX: E86.0 Dehydration (principal); R11.2 Nausea with vomiting, unspecified; R19.7 Diarrhea, unspecified; R00.0 Tachycardia, unspecified
CPT/HCPCS: 71275; 80053; 83690; 84484; 85007; 85025; 96374; 96375; 99285; Q9967

== ENCOUNTER 2023-09-01 12:15 | Outpatient (CLI) | payer BC, SELFPAY ==
[2023-09-01 15:23] LABS: Alanine Aminotransferase 35 U/L (12-78); Albumin Level 4.8 g/dl (3.5-5.0); Albumin/Globulin Ratio 1.7 (1.1-1.8); Alkaline Phosphatase 88 U/L (38-126); Anion Gap 15.8 mEq/L (5-15); Aspartate Amino Transferase 33 U/L (14-36); Bilirubin,Total 0.5 mg/dl (0.2-1.3); Blood Urea Nitrogen 14 mg/dl (7-17); Calcium 9.7 mg/dl (8.4-10.2); Carbon Dioxide 30 mmol/L (22.0-30.0); Chloride 100 mmol/L (98-107); Chol/HDL Ratio 4.2 (1-3.5); Cholesterol 188 mg/dl (140-200); Estimated Glomerular Filt Rate 85 ml/min (>60); GFR (African American) 103 ML/MIN (>60); Globulin 2.8 g/dL (1.3-3.2); Glucose 118 mg/dl (74-100); HDL Cholesterol 45 mg/dl (40-60); Potassium 4.8 mmoL/L (3.5-5.1); Sodium 141 mmol/L (136-145); Total Protein,Serum 7.6 g/dl (6.3-8.2); Triglycerides 155 mg/dl (30-150); VLDL Cholesterol 31 mg/dL (0-40)
[2023-09-01 15:34] LABS: Direct LDL Cholesterol 101.41 mg/dL (100-129)
[2023-09-01 17:04] LABS: Creatinine,Urine Random 23 mg/dL (Not Estab.); Microalbumin < 6.000 mg/L (0-16.7)
[2023-09-01 17:49] LABS: Hemoglobin A1C 7.5 % (4.0-6.0)
== END 2023-09-01 23:59 ==
LOC: LAB.DROPOF 12:15
PROVIDERS: PCP Internal Medicine; Visit Provider Internal Medicine
DX: E11.9 Type 2 diabetes mellitus without complications (principal); E78.5 Hyperlipidemia, unspecified; K21.9 Gastro-esophageal reflux disease without esophagitis; M15.1 Heberden's nodes (with arthropathy); Z79.84 Long term (current) use of oral hypoglycemic drugs
CPT/HCPCS: 80053; 80061; 82043; 82570; 83036

== ENCOUNTER 2023-09-14 13:30 | Outpatient (RCR) | payer BC, SELFPAY ==
--- NOTE | 2023-09-14 14:37 | HMH.OTOPEV ---
OT Inpatient Evaluation Rehab OT Outpatient Eval Start: 09/14/23 14:30 Freq: Status: Active Protocol: Document 09/14/23 14:31 [email or web address] (Rec: 09/14/23 14:37 [facility] [id number] E-signed By Liang Greenfield, OT Outpatient Therapy Subjective History Subjective History Pt is a 63 year old female who reports to therapy for initial evaluation for right scapular pain. Pt claims her pain began ~1 week ago. She does not recall a specific injury causing pain to begin. Along with her pain in scapula, pt also has tingling down right arm into hand intermittently. Pt is right hand dominant. Therapist assessed pt RUE AROM and strength at shoulder, elbow, wrist. Pt's AROM and strength is within normal limits at all 3 joints. 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 Therapist also assessed c spine and pt had an improvement in scapular pain when pt's cervical spine was distracted. Therapist spoke with physical therapist and according to all symptoms she is currently having, therapist believes pt's main issue is coming from the cervial spine and she is possibly experiencing cervical radiculopathy. Pt's orders will be transferred to PT for an evaluation of cervical spine. New diagnosis of cancer in past 12 No months? 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 Outpatient Therapy Plan of Care Addendums This patient is a candidate for social No or vocational rehab? Patient/Guardian verbally acknowledges Yes understanding of treatment program and consents to further treatment? Patient/Guardian verbally acknowledges Yes understanding of diagnosis, prognosis and goals for treatment? Eval Complexity OT Charge 51300 - Moderate Complexity Shoulder/Elbow Eval Shoulder Objective Measurements Elbow Objective Measurements PHYSICIAN CERTIFICATION: I certify the specified therapy services for Evette Qureshi are required, authorized, and reviewed every 30 days.
== END 2023-09-14 14:30 | disposition home or self-care (01) ==
LOC: OT 13:30
PROVIDERS: PCP Internal Medicine; Visit Provider Internal Medicine
DX: M79.601 Pain in right arm (principal); M54.10 Radiculopathy, site unspecified
CPT/HCPCS: 97166

== ENCOUNTER 2023-09-14 14:31 | Outpatient (CLI) | payer BC, SELFPAY ==
--- NOTE | 2023-09-14 14:36 | XR_ITS ---
FINAL REPORT CLINICAL HISTORY: RT SHOULDER PAIN,RT ARM TINGLING,RT HAND WEAKNESS FINDINGS: CERVICAL SPINE Five views demonstrate no acute fracture. There are mild and moderate degenerative changes with multilevel osteophytes. There is mild and moderate bilateral neural foraminal narrowing, worst on the right at C3-4 and C4-5. There is no malalignment. IMPRESSION: Degenerative changes as discussed above. Reviewed, Interpreted and Dictated by Israel Rosales III, MD Transcribed by Kell Campbell Authenticated and [facility]
== END 2023-09-14 23:59 ==
LOC: RAD 14:32
PROVIDERS: PCP Internal Medicine; Visit Provider Internal Medicine
DX: M25.511 Pain in right shoulder (principal); R20.2 Paresthesia of skin; R53.1 Weakness
CPT/HCPCS: 72050

== ENCOUNTER 2023-10-18 16:00 | Outpatient (RCR) | payer BC, SELFPAY ==
--- NOTE | 2023-09-20 17:36 | HMH.PTOPEV ---
PT Outpatient Evaluation Rehab PT Outpatient Evaluation Start: 09/20/23 15:52 Freq: Status: Active Protocol: Document 09/20/23 15:52 CARITO (Rec: 09/20/23 17:35 CARITO [id number]) E-signed By Nargis Gates, PT Outpatient Therapy Subjective History Subjective History Pt is a 63 y/o female who reports insidious onset of right medial shoulder blade pain when she woke up on . Pt denies known trauma or injury. Pt reports a couple days later she noticed decreased right medical economics consultant strength and intermittent tingling down her arm into the thumb and index finger. Pt reports numbness/tingling lasted ~3 days then abolished, denies paresthesia since. Pt denies neck pain or headaches. Pt had a cervical spine xray on with findings of no acute fracture. There are mild and moderate degenerative changes with multilevel osteophytes. There is mild and moderate bilateral neural foraminal narrowing, worst on the right at C3-4 and C4-5. There is no malalignment. Pt reports pain has improved over the past couple days, states she is taking Gabapentin as prescribed. Pt reports pain is aggravated by laying on her side, working at her desk & filing papers, and carrying items in her right hand. Pt reports she is only able to get comfortable and sleep at night time by laying flat on her back. Right-handed Medical History: Type II Diabetes, Hyperlipidemia New diagnosis of cancer in past 12 No months? Chief Complaint Pain,Decreased Galvanizing Pot Runner Strength Symptom Type Ache,Sharp Symptoms Relieved By Rest/Positioning,Heat, Prescription Meds Symptoms Aggravated By Physical Activity Prior Functional Limitations None Current Functional Limitations Lifting,Desk Work/Reading, Sleeping Symptom Description Constant but Variable Level of pain today (0-10) 3 Pain scale - at its best (0-10) 0 Pain scale - at its worst (0-10) 10 Cervical Eval Palpation Cervical Muscles R Upper Trapezius Flexibility Deficits Upper Trapezius Muscle Length (R) Moderate Tightness Levaetor Scapulae Muscle Length (R) Moderate Tightness Pectoralis Major Muscle Length (R) Moderate Tightness Pectoralis Minor Muscle Length (R) Moderate Tightness Passive Joint Mobility Cervical PIVM Dec: R C4/5 L C4/5 R C5/6 L C5/6 R C6/7 L C6/7 R C7/T1 L C7/T1 AROM Cervical Spine Extension Active Range of 45 Motion (degrees) Cervical Spine Flexion Active Range of 45 Motion (degrees) Cervical Spine Right Lateral Flexion 40 Active Range of Motion (degrees) Cervical Spine Left Lateral Flexion 40 Active Range of Motion (degrees) Cervical Spine Right Rotation Active 60 Range of Motion (degrees) Cervical Spine Left Rotation Active 60 Range of Motion (degrees) MMT Right Deltoid (C5) 5 Normal Biceps Brachii Strength Grade 5 Normal Wrist Extension Strength Grade 5 Normal Triceps Brachii Strength Grade 5 Normal Wrist Flexion Strength Grade 5 Normal Extensor Pollicis Longus Strength Grade 5 Normal Finger Abduction Strength Grade 5 Normal DTR Rt Biceps 2+ Lt Biceps 2+ Rt Brachioradialis 2+ Lt Brachioradialis 2+ Rt Triceps 2+ Lt Triceps 2+ Altered Sensation Right Upper extremity Dermatomes C5,C6 Comment decreased light touch R compared to L Special Test C-Spine Foraminal Compression (Spurling) Negative Right Test C-spine Verterbral Accessory Movements Central P/A Lawrence that Elicit Symptoms C-Spine Foraminal Distraction Test Positive Shoulder Abduction Relief Test Positive Right Shoulder/Elbow Eval Shoulder Objective Measurements Posture Shoulder Posture Sitting Position (L) Rounded,(R) Rounded,(L) Forward,(R) Forward Shoulder Posture Standing Position (L) Rounded,(R) Rounded,(L) Forward,(R) Forward Shoulder ROM Right full ROM shoulder exam standard right Shoulder MMT Lower Trapezius Strength Grade 4- Good- Middle Trapezius Strength Grade 4- Good- Upper Trapezius/Levator Scapulae 4 Good Shoulder Abduction Strength Grade 5 Normal Shoulder Extension Strength Grade 4 Good Shoulder Flexion Strength Grade 5 Normal Shoulder External Rotation Strength 5 Normal Grade Shoulder Internal Rotation Strength 5 Normal Grade Elbow Objective Measurements Wrist/Hand Eval Galvanizing Pot Runner/Pinch Strength Left Galvanizing Pot Runner Strength Measurement (lbs) 50 Right Galvanizing Pot Runner Strength Measurement (lbs) 30 Neck Disability Index Neck Disability Index Section 1: Pain Intensity The pain is very mild at moment Section 2: Personal Care (washing, I can look after myself dressing, etc.) normally but it causes extra pain Section 3: Lifting I can lift heavy weights but it gives extra pain Section 4: Reading I can read as much as I want to with no pain in my neck Section 5: Headaches I have no headaches at all Section 6: Concentration I can concentrate fully when I want to with slight difficulty Section 7: Work I can do as much work as I want to Section 8: Driving I can drive my car without any neck pain Section 9: Sleeping My sleep is moderately disturbed (2-3 hrs. sleepless) Section 10: Recreation I am able to engage in all my recreation activities with some pain in NDI Score 8 Outpatient Therapy Assessment Impairments Problems/Impairmments Palpation Tenderness,Impaired Range of Motion,Impaired Strength,Impaired Lifting, Impaired Work Activities, Impaired Desk/Computer Activities,Subjective C/O Pain ,Impaired Self Care/Self Management Prognosis Rehab Potential Good Clinical Impression Consistent with Diagnosis Yes Consistent with cervical radiculopathy Short Term Goals Number of Weeks 3 Decrease Subjective C/O Pain Yes: Improve pain at worst to 8/10 to improve overall QOL Improve Self Care/Self Management Yes Patient to be Ind w/ HEP Yes Fdc Goals Number of Weeks 6 Decreased Palpation Tenderness Yes: 1-2/4 TTP of C4-C6 SP w/o reproduction of p! in shoulder Increase Range of Motion Yes: Improve cervical AROM to WNL Increase Strength Yes: Improve scapular strength to 4+/5, R medical economics consultant strength to 40-50lbs Improve Neck Disability Index Score Yes: Improve to 5 or less to improve overall QOL Decrease Subjective C/O Pain Yes: Improve pain at worst to 6/10 to improve overall QOL Outpatient Therapy Plan of Care Treatment Plan May Include Therapeutic Exercise Including Home Yes Exercise Program Manual Therapy Techniques Yes Neuromuscular Re-education Yes Therapeutic Activities to Return to Yes Previous Functional/Work Level ADL/Self Care Education Yes Mechanical Traction Yes Dry Needling Yes Thermal Modalities Yes Electrical Stimulation Yes Ultrasound/Phonophoresis Yes Iontophoresis Yes Massage Yes Eval/Re-Eval Yes Frequency Times per week 2 Duration Number of Weeks 4-6 Addendums This patient is a candidate for social No or vocational rehab? Patient/Guardian verbally acknowledges Yes understanding of treatment program and consents to further treatment? Patient/Guardian verbally acknowledges Yes understanding of diagnosis, prognosis and goals for treatment? Eval Complexity PT Charges 37092 - Low Complexity PHYSICIAN CERTIFICATION: I certify the specified therapy services for Evette Qureshi are required, authorized, and reviewed every 30 days.
== END 2023-10-18 17:00 | disposition home or self-care (01) ==
LOC: PT 16:00
PROVIDERS: PCP Internal Medicine; Visit Provider Internal Medicine
DX: M54.2 Cervicalgia (principal); M54.12 Radiculopathy, cervical region; M47.22 Other spondylosis with radiculopathy, cervical region
CPT/HCPCS: 97010; 97110; 97140; 97163; 97530

== ENCOUNTER 2024-02-12 11:12 | Outpatient (CLI) | payer BC, SELFPAY ==
--- NOTE | 2024-02-12 11:12 | MM_ITS ---
PROCEDURE INFORMATION: Exam: MG Bilateral Screening 3D Mammography Exam date and time: 02/12/2024 11:01 AM Age: 64 years old Clinical indication: Screening examination TECHNIQUE: Imaging protocol: Bilateral Screening tomosynthesis and 2D mammography including computer-aided detection (CAD) when performed. COMPARISON: 1. MG MM DIG SCREENING MAMM BI W/CAD 02/12/2024 11:01 AM 2. MG MM DIG SCREENING MAMM BI W/CAD 11/30/2021 7:56 AM FINDINGS: MAMMOGRAPHY: Breast composition: The breasts are almost entirely fatty. Mass: None. Architectural distortion: None. Calcifications: No suspicious calcifications. Asymmetric density: None. Skin thickening: None. Axillary adenopathy: None. IMPRESSION: No mammographic evidence of malignancy. Annual screening is recommended unless otherwise clinically indicated. ASSESSMENT: BI-RADS Category 1: Negative
== END 2024-02-12 23:59 | disposition home or self-care (01) ==
LOC: RAD 11:12
PROVIDERS: PCP Internal Medicine; Visit Provider Obstetrics & Gynecology
DX: Z12.31 Encounter for screening mammogram for malignant neoplasm of breast (principal)
CPT/HCPCS: 77063; 77067

== ENCOUNTER 2024-04-11 14:47 | Outpatient (CLI) | payer BC, SELFPAY ==
[2024-04-11 17:28] LABS: Basophils # 0.1 K/mm3 (0-0.2); Basophils % 1.1 % (0.1-2.0); Eosinophils # 0.2 K/mm3 (0.0-0.4); Eosinophils % 3.2 % (0.1-12.0); Hematocrit 42.9 % (37.0-47.0); Hemoglobin 13.6 g/dL (12.2-16.2); Lymphocytes # 2.1 K/mm3 (0.7-4.5); Lymphocytes % 28.4 % (10-50); Mean Corpuscular HGB Conc 31.6 g/dL (31.8-35.4); Mean Corpuscular Hemoglobin 29.8 pg (27.0-31.2); Mean Corpuscular Volume 94.3 fl (81-99); Mean Platelet Volume 9.4 fl (7.4-10.4); Monocytes # 0.4 K/mm3 (0.1-1.0); Monocytes % 5.3 % (1.7-9.3); Neutrophils # 4.5 K/mm3 (1.8-7.8); Neutrophils % 61.9 % (37.0-80.0); Platelet Count 522 K/mm3 (142-424); Red Blood Count 4.55 M/mm3 (4.20-5.40); Red Cell Distribution Width 13.7 % (11.5-17.5); White Blood Count 7.3 K/mm3 (4.8-10.8)
[2024-04-11 17:46] LABS: Alanine Aminotransferase 37 U/L (12-78); Albumin Level 4.4 g/dl (3.5-5.0); Albumin/Globulin Ratio 1.5 (1.1-1.8); Alkaline Phosphatase 75 U/L (38-126); Anion Gap 13.6 mEq/L (5-15); Aspartate Amino Transferase 35 U/L (14-36); Bilirubin,Total 0.6 mg/dl (0.2-1.3); Blood Urea Nitrogen 13 mg/dl (7-17); Calcium 9.4 mg/dl (8.4-10.2); Carbon Dioxide 26 mmol/L (22.0-30.0); Chloride 102 mmol/L (98-107); Chol/HDL Ratio 4.6 (1-3.5); Cholesterol 225 mg/dl (140-200); Estimated Glomerular Filt Rate 101 ml/min (>60); GFR (African American) 122 ML/MIN (>60); Glucose 146 mg/dl (74-100); HDL Cholesterol 49 mg/dl (40-60); Potassium 4.6 mmoL/L (3.5-5.1); Sodium 137 mmol/L (136-145); Total Protein,Serum 7.4 g/dl (6.3-8.2); Triglycerides 235 mg/dl (30-150); VLDL Cholesterol 47 mg/dL (0-40)
[2024-04-11 17:53] LABS: Hemoglobin A1C 7.9 % (4.0-6.0)
[2024-04-11 17:58] LABS: Direct LDL Cholesterol 119.32 mg/dL (100-129)
== END 2024-04-11 23:59 | disposition home or self-care (01) ==
LOC: LAB.DROPOF 04-12 14:47
PROVIDERS: PCP Internal Medicine; Visit Provider Internal Medicine
DX: E11.42 Type 2 diabetes mellitus with diabetic polyneuropathy (principal); E78.5 Hyperlipidemia, unspecified; R10.9 Unspecified abdominal pain
CPT/HCPCS: 80053; 80061; 83036; 85025

== ENCOUNTER 2024-06-03 10:35 | Outpatient (CLI) | payer BC, SELFPAY ==
[2024-06-05 10:23] LABS: Pancreatic Elastase, Fecal >800 (>200)
== END 2024-06-03 23:59 | disposition home or self-care (01) ==
LOC: LAB 10:37
PROVIDERS: PCP Internal Medicine; Visit Provider Nurse Practitioner Family
DX: R14.0 Abdominal distension (gaseous) (principal)
CPT/HCPCS: 82656

== ENCOUNTER 2024-06-17 08:38 | Outpatient (CLI) | payer BC, SELFPAY ==
--- NOTE | 2024-06-17 | FL_ITS ---
FINAL REPORT CLINICAL HISTORY: BLOATING, CONSTIPATION, DIARRHEA 3810.56 dap 3.04 fluoro FINDINGS: UPPER GI WITH SBFT HISTORY: Constipation, diarrhea, bloating. PROCEDURE: The patient ingested barium. Effervescent crystals were also administered. Spot and overhead films were obtained. Additional barium was administered for a SBFT. FINDINGS: There is a small sliding-type hiatal hernia. There is no gastroesophageal reflux demonstrated. There is mild esophageal dysmotility. The rugal fold pattern of the stomach is normal. The duodenal bulb is normal. 13 mm barium tablet passes easily through the esophagus and into the stomach. SBFT: The retail sales manager film is normal. There is no evidence of obstruction. The mucosal fold pattern is normal. Contrast reaches the colon at 55 minutes. There is a large amount of overlap of bowel in the right side of the abdomen. The terminal ileum was not definitively identified. However, no abnormal loops of small bowel are identified. Fluoroscopy time: 3 minutes 4 seconds. Radiation exposure in the DAP: 3810.56 uGym2 IMPRESSION: Small hiatal hernia. Mild esophageal dysmotility. Terminal ileum not well visualized due to overlap of bowel, but no abnormal loops of small bowel were identified. Otherwise, unremarkable upper GI and small bowel follow-through. Reviewed, Interpreted and Dictated by Israel Rosales III, MD Transcribed by Ani Nguyễn PA-C Authenticated and [facility]
[2024-06-17] MEDS: BARIUM SULFATE(E-Z-AC);750ML BOTTLE 750 ML PO (10:39)
[2024-06-17] MEDS: BARIUM SULFATE (E-Z-HD 340GM);135ML BOTTLE 135 ML PO (10:40)
[2024-06-17] MEDS: E-Z-GASII EFFERVESCENT GRANULES;1PK 1 EACH PO (10:40)
== END 2024-06-17 23:59 | disposition home or self-care (01) ==
LOC: RAD 08:38
PROVIDERS: PCP Nurse Practitioner Family; Visit Provider Nurse Practitioner Family
DX: R14.0 Abdominal distension (gaseous) (principal); Z80.0 Family history of malignant neoplasm of digestive organs
CPT/HCPCS: 74246; 74248

== ENCOUNTER 2024-10-16 16:25 | Outpatient (CLI) | payer BC, SELFPAY ==
[2024-10-16 16:58] LABS: Hemoglobin A1C 7.4 % (4.0-6.0)
[2024-10-16 17:11] LABS: Alanine Aminotransferase 57 U/L (12-78); Alkaline Phosphatase 82 U/L (38-126); Anion Gap 16.5 mEq/L (5-15); Aspartate Amino Transferase 50 U/L (14-36); Bilirubin,Total 0.4 mg/dl (0.2-1.3); Blood Urea Nitrogen 18 mg/dl (7-17); Calcium 9.4 mg/dl (8.4-10.2); Carbon Dioxide 26 mmol/L (22.0-30.0); Chloride 98 mmol/L (98-107); Chol/HDL Ratio 4.1 (1-3.5); Cholesterol 172 mg/dl (140-200); Creatinine,Urine Random 75 mg/dL (Not Estab.); Estimated Glomerular Filt Rate 85 ml/min (>60); GFR (African American) 102 ML/MIN (>60); Globulin 2.5 g/dL (1.3-3.2); Glucose 151 mg/dl (74-100); HDL Cholesterol 42 mg/dl (40-60); Microalbumin < 6.000 mg/L (0-16.7); Potassium 4.5 mmoL/L (3.5-5.1); Sodium 136 mmol/L (136-145); Total Protein,Serum 7.5 g/dl (6.3-8.2); Triglycerides 232 mg/dl (30-150); VLDL Cholesterol 46 mg/dL (0-40)
[2024-10-16 17:23] LABS: Direct LDL Cholesterol 71.59 mg/dL (100-129)
== END 2024-10-16 23:59 | disposition home or self-care (01) ==
LOC: LAB.DROPOF 16:26
PROVIDERS: PCP Internal Medicine; Visit Provider Internal Medicine
DX: E11.42 Type 2 diabetes mellitus with diabetic polyneuropathy (principal); E78.5 Hyperlipidemia, unspecified; Z79.84 Long term (current) use of oral hypoglycemic drugs
CPT/HCPCS: 80053; 80061; 82043; 82570; 83036

== ENCOUNTER 2024-11-01 19:30 | Emergency (ER) | payer BC, SELFPAY ==
[2024-11-01 19:44] VITALS: BP 149/76; PULSE 110; RESP 17; TEMP 38.4; O2SAT 95; BMI 32.6
[2024-11-01 19:53] LABS: Coronavirus 19, PCR Not Detected (NotDetected); Influenza A, PCR Not Detected (NotDetected); Influenza B, PCR Not Detected (NotDetected)
--- NOTE | 2024-11-01 19:53 | XR_ITS ---
PROCEDURE INFORMATION: Exam: XR Chest Exam date and time: 11/01/2024 8:05 PM Age: 64 years old Clinical indication: Dyspnea TECHNIQUE: Imaging protocol: Radiologic exam of the chest. Views: 1 view. COMPARISON: CT ANGIO CHEST PE PROTOCOL 08/05/2023 5:38 PM FINDINGS: Lungs: The lungs are adequately inflated. No focal consolidation. Pleural spaces: No pneumothorax or pleural effusion. Heart/Mediastinum: The cardiomediastinal silhouette has normal size and contour. Bones/joints: No displaced fracture. Intraperitoneal space: The visualized abdomen is unremarkable. IMPRESSION: No acute cardiopulmonary disease.
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
[2024-11-01] MEDS: ACETAMINOPHEN 500MG TAB 1000 MG PO (19:57)
[2024-11-01] MEDS: KETOROLAC 30MG/ML VIAL 15 MG IV (19:58)
[2024-11-01] MEDS: LACTATED RINGERS 1000ML 1,000 ML 999 ML IV (19:58)
[2024-11-01 20:17] LABS: Basophils # 0.1 K/mm3 (0-0.2); Basophils % 0.9 % (0.1-2.0); Eosinophils % 0.5 % (0.1-12.0); Hematocrit 37.7 % (37.0-47.0); Hemoglobin 13.1 g/dL (12.2-16.2); Lymphocytes # 0.5 K/mm3 (0.7-4.5); Lymphocytes % 9.5 % (10-50); Mean Corpuscular HGB Conc 34.7 g/dL (31.8-35.4); Mean Corpuscular Hemoglobin 29.8 pg (27.0-31.2); Mean Corpuscular Volume 85.7 fl (81-99); Mean Platelet Volume 9.4 fl (7.4-10.4); Monocytes # 0.4 K/mm3 (0.1-1.0); Monocytes % 6.9 % (1.7-9.3); Neutrophils # 4.6 K/mm3 (1.8-7.8); Platelet Count 290 K/mm3 (142-424); Red Cell Distribution Width 12.3 % (11.5-17.5); White Blood Count 5.7 K/mm3 (4.8-10.8)
[2024-11-01 20:29] LABS: Alanine Aminotransferase 118 U/L (12-78); Albumin Level 4.4 g/dl (3.5-5.0); Albumin/Globulin Ratio 1.5 (1.1-1.8); Alkaline Phosphatase 129 U/L (38-126); Anion Gap 16.1 mEq/L (5-15); Aspartate Amino Transferase 120 U/L (14-36); Bilirubin,Total 0.8 mg/dl (0.2-1.3); Blood Urea Nitrogen 12 mg/dl (7-17); Calcium 9.5 mg/dl (8.4-10.2); Carbon Dioxide 25 mmol/L (22.0-30.0); Chloride 94 mmol/L (98-107); Creatinine Clearance Estimated 71 mL/min (50-200); Estimated Glomerular Filt Rate 85 ml/min (>60); GFR (African American) 102 ML/MIN (>60); Glucose 186 mg/dl (74-100); Lactic Acid 1.9 mmol/L (0.7-2.1); Potassium 4.1 mmoL/L (3.5-5.1); Sodium 131 mmol/L (136-145); Total Protein,Serum 7.4 g/dl (6.3-8.2)
[2024-11-01 21:21] VITALS: BP 124/68; PULSE 97; RESP 16
[2024-11-01 21:23] LABS: Monoscreen (Rapid) Negative (Negative)
[2024-11-01 21:39] LABS: HIV Combo NEGATIVE (Negative)
[2024-11-01 21:46] LABS: Hepatitis C Ab Qual. W/ RFX NEGATIVE (Negative)
[2024-11-01 22:20] VITALS: BP 123/72; PULSE 100; RESP 17; TEMP 37.4; O2SAT 95
== END 2024-11-01 22:21 | disposition home or self-care (01) ==
PROVIDERS: Emergency Provider Student in an Organized Health Care Education/Training Program; PCP Internal Medicine
DX: B34.9 Viral infection, unspecified (principal); R74.8 Abnormal levels of other serum enzymes; R53.83 Other fatigue; M79.10 Myalgia, unspecified site; R50.9 Fever, unspecified; R00.0 Tachycardia, unspecified; R09.02 Hypoxemia; Z80.0 Family history of malignant neoplasm of digestive organs
CPT/HCPCS: 71045; 80053; 83605; 85025; 86318; 86803; 87040; 87389; 87636; 96361; 96374; 99284; J1885; J7120

== ENCOUNTER 2024-11-27 10:03 | Outpatient (CLI) | payer BC, SELFPAY ==
--- NOTE | 2024-11-27 10:06 | XR_ITS ---
FINAL REPORT CLINICAL HISTORY: Fever COMPARISON: 08/09/2022 FINDINGS: PA and lateral views of the chest were obtained. The cardiac and mediastinal silhouettes are within normal limits. The lungs are clear. There is no pleural effusion or pneumothorax. No acute osseous abnormality is identified. IMPRESSION: No radiographic evidence of acute cardiac or pulmonary disease. Reviewed, Interpreted and Dictated by Maribell Burnett MD Transcribed by Lainey Roblero Authenticated and [facility]
[2024-11-27 11:22] LABS: Basophils # 0.1 K/mm3 (0-0.2); Basophils % 0.7 % (0.1-2.0); Eosinophils # 0.2 Kmm3 (0.0-0.4); Eosinophils % 2.7 % (0.1-12.0); Hematocrit 34.9 % (37.0-47.0); Hemoglobin 11.6 g/dL (12.2-16.2); Lymphocytes # 1.1 K/mm3 (0.7-4.5); Lymphocytes % 14.7 % (10-50); Mean Corpuscular HGB Conc 33.2 g/dL (31.8-35.4); Mean Corpuscular Hemoglobin 28.8 pg (27.0-31.2); Mean Corpuscular Volume 86.6 fl (81-99); Mean Platelet Volume 9.3 fl (7.4-10.4); Monocytes # 0.2 K/mm3 (0.1-1.0); Monocytes % 3.2 % (1.7-9.3); Neutrophils # 5.8 K/mm3 (1.8-7.8); Neutrophils % 78.3 % (37.0-80.0); Nucleated Red Blood Cells # 0 10^3/uL; Nucleated Red Blood Cells % 0 %; Platelet Count 391 K/mm3 (142-424); Red Blood Count 4.03 M/mm3 (4.20-5.40); Red Cell Distribution Width 13.2 % (11.5-17.5); Red Cell Distribution Width-SD 41.2 fL; White Blood Count 7.4 K/mm3 (4.8-10.8)
[2024-11-27 12:05] LABS: Alanine Aminotransferase 33 U/L (12-78); Albumin Level 3.9 g/dl (3.5-5.0); Albumin/Globulin Ratio 1.3 (1.1-1.8); Alkaline Phosphatase 135 U/L (38-126); Anion Gap 14.1 mEq/L (5-15); Aspartate Amino Transferase 31 U/L (14-36); Bilirubin,Total 0.6 mg/dl (0.2-1.3); Blood Urea Nitrogen 10 mg/dl (7-17); Calcium 9.2 mg/dl (8.4-10.2); Carbon Dioxide 26 mmol/L (22.0-30.0); Chloride 99 mmol/L (98-107); Estimated Glomerular Filt Rate 125 ml/min (>60); GFR (African American) 151 ML/MIN (>60); Globulin 3.1 g/dL (1.3-3.2); Glucose 179 mg/dl (74-100); Potassium 4.1 mmoL/L (3.5-5.1); Sodium 135 mmol/L (136-145)
[2024-11-27 12:10] LABS: Erythrocyte Sedimentation Rate 96 mm/hr (0-30)
[2024-12-02 00:16] LABS: A. phagocytophilum,PCR Negative (Negative); Ehrlichia sp., PCR Negative (Negative)
== END 2024-11-27 23:59 | disposition home or self-care (01) ==
PROVIDERS: PCP Internal Medicine; Visit Provider Internal Medicine
DX: R50.9 Fever, unspecified (principal); R05.9 Cough, unspecified; R74.8 Abnormal levels of other serum enzymes
CPT/HCPCS: 36415; 71046; 80053; 85025; 85651; 86757; 87040; 87468; 87484

== ENCOUNTER 2024-12-03 07:37 | Outpatient (CLI) | payer BC, SELFPAY ==
--- NOTE | 2024-12-03 08:00 | US_ITS ---
FINAL REPORT TECHNIQUE: Ultrasound images of the abdomen were obtained. CLINICAL HISTORY: Abnormal liver enzymes, fever of unknown origin COMPARISON: None FINDINGS: The pancreas is unremarkable. There is fatty infiltration of the liver. The gallbladder is surgically absent. The common duct is normal. The right kidney measures 11.4 cm in length and is normal in echogenicity without hydronephrosis. The left kidney measures 11.8 cm in length and is normal in echogenicity without hydronephrosis. The spleen is unremarkable. The aorta is normal in caliber. The vena cava is unremarkable. IMPRESSION: Fatty liver Reviewed, Interpreted and Dictated by Philippe James MD Transcribed by Chen Yoo Authenticated and . [facility]
== END 2024-12-03 23:59 | disposition home or self-care (01) ==
LOC: RAD 07:38
PROVIDERS: PCP Internal Medicine; Visit Provider Internal Medicine
DX: K76.0 Fatty (change of) liver, not elsewhere classified (principal)
CPT/HCPCS: 76700

== ENCOUNTER 2024-12-04 11:15 | Outpatient (CLI) | payer BC, SELFPAY ==
[2024-12-05 16:12] LABS: Lyme Ab CIA Positive (Negative); Lyme Ab IgM CIA Positive (Negative); Lyme IgG CIA Positive (Negative)
[2024-12-09 00:08] LABS: Lyme B. burgdorferi PCR Blood Negative (Negative)
== END 2024-12-04 23:59 | disposition home or self-care (01) ==
LOC: LAB 11:15
PROVIDERS: PCP Internal Medicine; Visit Provider Internal Medicine
DX: A69.20 Lyme disease, unspecified (principal); R50.9 Fever, unspecified
CPT/HCPCS: 36415; 86618; 87476